=== PATIENT | female | born 1980 | race Hispanic/Latino ===

== ENCOUNTER 2021-11-11 05:44 | Day surgery (SDC) | payer BC ==
[2021-11-06 11:22] VITALS: BMI 43.0
[2021-11-06 17:08] LABS: Mean Corpuscular HGB CONC 32.6 g/dL (32.0-36.0); Mean Corpuscular Hemoglobin 27.7 pg (27.0-33.0); Mean Platelet Volume 11.3 fl (7.4-10.4); Platelet Count 178 10x3/uL (150-450); RBC Distribution Width 17.5 % (11.5-14.5); Red Blood Cell (RBC) Count 5.41 10x6/uL (3.90-5.03); White Blood Cell (WBC) Count 6.5 10x3/uL (3.5-10.5)
[2021-11-06 17:15] LABS: BHCG - Serum Negative (NEGATIVE); Pregs Control Background? CLEAR/WHITE (CLR/WHITE); Pregs Control Bar Appear? YES (CONTROL BAR)
[2021-11-07 00:25] LABS: SARS-CoV-2 PCR by NAA Not Detected (NotDetected)
[2021-11-11] MEDS ORDERED: Famotidine/PF 20 mg/2ml Vial ONE (06:22)
[2021-11-11] MEDS ORDERED: Gabapentin 300 MG CAP ONE (06:22)
[2021-11-11] MEDS ORDERED: CeleCOXIB 100 MG CAP ONE (06:23)
[2021-11-11] MEDS ORDERED: Lidocaine 1% MPF 2 ML VIAL ONE (06:23)
[2021-11-11] MEDS ORDERED: EPINEPHrine 1 MG/ML AMP ONE (07:01)
[2021-11-11] MEDS ORDERED: Bupivacaine PF 0.5% 30 ML VIAL ONE ×2 (07:02)
[2021-11-11] MEDS ORDERED: Lidocaine 1% w/Epinephrine 1:200K 30 ML VIAL ONE (07:02)
[2021-11-11] MEDS ORDERED: Methylene Blue 50 MG/10 ML AMPUL ONE (07:02)
[2021-11-11] MEDS ORDERED: Dexamethasone 4 mg/ml Vial ONE (07:08)
[2021-11-11] MEDS ORDERED: Rocuronium Bromide 10 MG/ML (10ML VIAL) ONE (07:08)
[2021-11-11] MEDS ORDERED: Fentanyl 100 MCG/2 ML VIAL ONE ×3 (07:08→09:51)
[2021-11-11] MEDS ORDERED: PROPOFOL 20 ML ONE (07:08)
[2021-11-11] MEDS ORDERED: Ondansetron PF 4 MG/2 ML Vial ONE (07:08)
[2021-11-11] MEDS ORDERED: Lidocaine 1% PF 5 ML VIAL ONE (07:08)
[2021-11-11] MEDS ORDERED: Midazolam HCl 2 mg/2 ml Vial ONE (07:19)
[2021-11-11] MEDS ORDERED: ceFAZolin 2 GM/Dextrose 50 ML IVPB ONE (07:28)
[2021-11-11] MEDS ORDERED: Metoclopramide HCl 10 MG/2 ML VIAL ONE (09:05)
[2021-11-11] MEDS ORDERED: Glycopyrrolate 0.2 MG/ML 5 ML SYRINGE ONE (09:06)
[2021-11-11] MEDS ORDERED: Meperidine HCl/PF 25 MG/ML VIAL ONE (09:22)
[2021-11-11] MEDS ORDERED: Bisacodyl 10 MG SUPP PR PRN (09:44)
[2021-11-11] MEDS ORDERED: HYDROcodone/Acetaminophen 5/325 mg Tablet PO PRN ×2 (09:44)
[2021-11-11] MEDS ORDERED: Simethicone Chewable 80 MG TAB PO PRN (09:44)
[2021-11-11] MEDS ORDERED: Ondansetron PF 4 MG/2 ML Vial IVP PRN (09:44)
[2021-11-11] MEDS ORDERED: diphenhydrAMINE 25 MG CAP PO PRN (09:44)
[2021-11-11] MEDS ORDERED: traMADol HCl 50 MG TAB PO PRN (09:44)
[2021-11-11] MEDS ORDERED: Fentanyl 100 MCG/2 ML VIAL SLOW IVP PRN (09:44)
[2021-11-11] MEDS ORDERED: Zolpidem Tartrate 5 MG TAB PO PRN (09:44)
[2021-11-11] MEDS ORDERED: Promethazine HCl 25 MG/ML VIAL IM PRN (09:44)
[2021-11-11] MEDS: Ketorolac Tromethamine 30 MG/ML VIAL IVP SCH ×2 (12:07→19:00)
[2021-11-11] MEDS: Sodium Chloride 0.9% 1,000 ML IV SCH ×2 (15:47→16:59)
[2021-11-12] MEDS: Ketorolac Tromethamine 30 MG/ML VIAL IVP SCH (00:50)
[2021-11-12 03:28] LABS: Hemoglobin 12.1 g/dL (12.0-15.5); Mean Corpuscular HGB CONC 33.1 g/dL (32.0-36.0); Mean Corpuscular Hemoglobin 27.4 pg (27.0-33.0); Mean Corpuscular Volume 82.8 fl (81.6-98.3); Mean Platelet Volume 11.7 fl (7.4-10.4); Platelet Count 160 10x3/uL (150-450); Red Blood Cell (RBC) Count 4.42 10x6/uL (3.90-5.03); White Blood Cell (WBC) Count 10.4 10x3/uL (3.5-10.5)
[2021-11-12 04:19] VITALS: TEMP 98.3
[2021-11-12] MEDS ORDERED: Ibuprofen 800 MG TAB PO SCH (06:00)
[2021-11-12 07:45] VITALS: BP 116/79
== END 2021-11-12 10:45 | disposition home or self-care (01) ==
LOC: CSHSDC 05:44 → CSHPP 11:06 → UNDOADMOB 11:06 → CSHSDC 11-12 10:45 → UNDODISOB 11-12 10:45
PROVIDERS: ATTEND Student in an Organized Health Care Education/Training Program
DX: N80.0 Endometriosis of uterus (principal); N73.6 Female pelvic peritoneal adhesions (postinfective); N39.3 Stress incontinence (female) (male); Z20.822 Contact with and (suspected) exposure to COVID-19
CPT/HCPCS: 36415; 84703; 85027; 86850; 86870; 86900; 86901; 86905; 86922; 88307; C1781; J0171; J0690; J1100; J1885; J2175; J2250; J2405; J2704; J2765; J3010; J7050; Q9968; S0020; S0028; U0003; U0005